=== PATIENT | male | born 1940 | race Caucasian/White ===

== ENCOUNTER 2020-05-11 16:03 | Outpatient (REF) | payer OTHER, SELFPAY ==
[2020-05-11 18:09] LABS: Alanine Aminotransferase 12 U/L (0-40); Albumin Level 3.6 g/dL (3.5-5.0); Alkaline Phosphatase 104 U/L (39-117); Anion Gap 13 (12-20); Aspartate Amino Transferase 18 U/L (5-37); Bilirubin Total 0.4 mg/dL (0.0-1.0); Blood Urea Nitrogen 11 mg/dL (9-16); Calcium 9.2 mg/dL (8.4-10.2); Carbon Dioxide 34 mmol/L (22-29); Chloride 101 mmol/L (96-108); Estimated Glomerular Filt Rate > 60; Glucose Random 86 mg/dL (60-115); Potassium 3.7 mmol/l (3.3-5.1); Sodium 144 mmol/L (135-145)
[2020-05-11 18:29] LABS: T4 Thyroxine 6.9 ug/dL (4.5-12.0); Thyroid Stimulating Hormone 0.73 mIU/mL (0.32-4.0)
[2020-05-11 18:54] LABS: Folate > 20.0 ng/mL (> or = 4.0); Vitamin B12 1082 pg/mL (200-900)
== END 2020-05-11 16:04 | disposition home or self-care (01) ==
LOC: HO.LAB 16:03
PROVIDERS: PCP Internal Medicine; Visit Provider Psychiatry & Neurology Neurology
DX: G31.84 Mild cognitive impairment of uncertain or unknown etiology (principal)
CPT/HCPCS: 80053; 82607; 82746; 84436; 84443

== ENCOUNTER → 2020-08-03 10:56 | Outpatient (BNVA) | payer OTHER, SELFPAY | PROVIDERS: PCP Internal Medicine; Visit Provider Internal Medicine Cardiovascular Disease | DX: I25.10 Atherosclerotic heart disease of native coronary artery without angina pectoris (principal); R07.9 Chest pain, unspecified | CPT/HCPCS: 99212 ==

== ENCOUNTER 2020-10-26 13:02 | Outpatient (REF) | payer OTHER, SELFPAY ==
[2020-10-26 17:54] LABS: T4 Thyroxine 8.9 ug/dL (4.5-12.0); Thyroid Stimulating Hormone 0.69 uIU/mL (0.32-4.0)
[2020-10-27 05:21] LABS: Folate > 20.0 ng/mL (> or = 4.0); Vitamin B12 1258 pg/mL (200-900)
== END 2020-10-26 13:03 | disposition home or self-care (01) ==
LOC: HO.LAB 13:02
PROVIDERS: PCP Internal Medicine; Visit Provider Psychiatry & Neurology Neurology
DX: G31.84 Mild cognitive impairment of uncertain or unknown etiology (principal)
CPT/HCPCS: 36415; 82607; 82746; 84436; 84443

== ENCOUNTER 2020-12-26 08:54 | Outpatient (REF) | payer OTHER, SELFPAY ==
[2020-12-26 10:29] LABS: Thyroid Stimulating Hormone 0.47 uIU/mL (0.32-4.0)
[2020-12-26 10:54] LABS: Folate > 20.0 ng/mL (> or = 4.0); Vitamin B12 1821 pg/mL (200-900)
== END 2020-12-26 08:55 | disposition home or self-care (01) ==
LOC: HO.LAB 08:54
PROVIDERS: PCP Internal Medicine; Visit Provider Internal Medicine
DX: R41.89 Other symptoms and signs involving cognitive functions and awareness (principal); E03.9 Hypothyroidism, unspecified
CPT/HCPCS: 36415; 82607; 82746; 84443